=== PATIENT | female | born 1990 | race African-American/Black ===

== ENCOUNTER 2019-01-13 16:13 | Emergency (ER) | payer SELFPAY ==
[2019-01-13] MEDS ORDERED: Ibuprofen 800 MG TAB ONE (16:35)
--- NOTE | 2019-01-13 17:44 | RAD ---
XR Knee Lt 4 View STANDARD History: [Pain] Comparison: None. Findings: There is mild medial compartment osteophyte formation, advanced for age. No significant horacio nt effusion. Likely an ACL graft. Soft tissues are unremarkable. Impression: No acute fracture or malalignment.
== END 2019-01-13 18:28 | disposition home or self-care (01) ==
LOC: ERS 16:13
DX: S80.02XA Contusion of left knee, initial encounter (principal); I10 Essential (primary) hypertension; Z79.899 Other long term (current) drug therapy; W10.9XXA Fall (on) (from) unspecified stairs and steps, initial encounter